=== PATIENT | female | born 1985 | race Caucasian/White ===

== ENCOUNTER 2017-08-01 15:48 | Emergency (ER) | payer MEDICAID ==
[2017-08-01 16:02] VITALS: RESP 16; TEMP 98.8
--- NOTE | 2017-08-01 16:28 | EDPHY ---
HPI/HX/ROS/PE/MDM Narrative: CHIEF COMPLAINT: Lower right quadrant abdominal pain HPI: The patient is a 32 y/o female complaining of lower right abdominal pain onset last night. She is about 12 weeks with her third . A recent ultrasound showed a single fetus with no complications. She was woken up last night by a sharp pain in her abdomen. She reports that the pain does not move and has no relieving factors. She denies vaginal bleeding, abnormal vaginal discharge, dysuria, fever, vomiting, diarrhea, or other associated symptoms. She reports normal oral intake with her last meal at 1:00 PM, 3 hours ago. She had a gallbladder removal surgery but still has her appendix. REVIEW OF SYSTEMS: Aside from elements discussed in the HPI, a comprehensive 10-point review of systems was reviewed and is negative. PMH: IBS, in her third SOCIAL HISTORY: Daughter at bedside, live in [place], PCP: Dr. Sung Nolen PHYSICAL EXAM: General:Patient is alert, in pain. ENT:Eyes are normal to inspection. ENT inspection normal. Neck: Normal inspection. Full range of motion. Respiratory:No respiratory distress. Breath sounds normal bilaterally. Cardiovascular: Regular rate and rhythm. Normal cap refill. Abdomen: Gravid uterus. Severe lower right quadrant pain worse to palpation. There are no peritoneal signs. There are normal bowel sounds. Back: Normal to inspection. No tenderness to palpation. Skin: Normal color. No rash. Warm and dry. Extremities: Normal appearance. Full range of motion. Neuro: Oriented x3. Normal motor function. Normal sensory function. ED Course: Study: Ultrasound of the abdomen Indication: Lower right quadrant pain Results: Ultrasound of the abdomen was obtained. The results of the study are: normal The study was read by the radiologist, Dr. William. I viewed the images myself on the PACS system. Study: Ultrasound of the uterus Indication: Abdominal pain in Results: Ultrasound of the uterus was obtained. The results of the study are: negative for acute processes The study was read by the radiologist, Dr. William. I viewed the images myself on the PACS system. I reassessed patient and discussed the results of her work-up with her. Her workup has been largely negative. I explained that she could have a kidney stone and an MRI would be necessary to completely rule out appendicitis. She refuses further testing and would like to leave. MDM: This is a first trimester patient with acute onset of RLQ pain. Her workup is obviously limited somewhat by her . US is negative for abnormal visualized appendix and there is an appropriate age IUP with no pelvic abnormality seen, so I think ectopic is very unlikely. Her WBC is negative, making appendicitis less likely. UA is positive for blood, so this may represent kidney stone. I explained to patient in detail that an MRI of her abdomen is indicated to definitively rule out any serious pathology, but she declines this test. She would prefer to try conservative management at home and return to ED if worsening. She understands that we are unable to rule out potentially life- or baby-threatening pathology without further testing. I see no signs of UTI. - Data Points Imaging Results: Imaging Impressions Abdomen Ultrasound 08/01/17 16:23 Impression: Nonvisualization of the appendix with no secondary evidence of appendicitis. Findings discussed with Singh Lea MD 08/01/2017 at 17:34. Obstetrics Ultrasound 08/01/17 16:23 Impression: 1. Single living intrauterine gestation with size consistent with dates. 2. Subjectively low amniotic fluid volume likely within normal limits. Attention is recommended on follow-up. Imaging: Discussed imaging studies w/ director call center sales Radiologist, I viewed and interpreted images myself Laboratory Results: Laboratory Results 08/01/17 16:39 08/01/17 16:39 08/01/17 08/01/17 08/01/17 18:00 16:39 16:39 WBC 7.85 10^3/uL 10^3/uL (3.80-9.50) RBC 4.03 10^6/uL L 10^6/uL (4.18-5.33) Hgb 13.1 g/dL g/dL (12.6-16.3) Hct 36.7 % L % (38.0-47.0) MCV 91.1 fL fL (81.5-99.8) MCH 32.5 pg pg (27.9-34.1) MCHC 35.7 g/dL g/dL (32.4-36.7) RDW 11.8 % % (11.5-15.2) Plt Count 256 10^3/uL 10^3/uL (150-400) MPV 10.1 fL fL (8.7-11.7) Neut % (Auto) 70.3 % % (39.3-74.2) Lymph % (Auto) 22.3 % % (15.0-45.0) [place] % (Auto) 6.9 % % (4.5-13.0) Eos % (Auto) 0.1 % L % (0.6-7.6) Baso % (Auto) 0.1 % L % (0.3-1.7) Nucleat RBC Rel Count 0.0 % % (0.0-0.2) Absolute Neuts (auto) 5.52 10^3/uL 10^3/uL (1.70-6.50) Absolute Lymphs (auto) 1.75 10^3/uL 10^3/uL (1.00-3.00) Absolute Monos (auto) 0.54 10^3/uL 10^3/uL (0.30-0.80) Absolute Eos (auto) 0.01 10^3/uL L 10^3/uL (0.03-0.40) Absolute Basos (auto) 0.01 10^3/uL L 10^3/uL (0.02-0.10) Absolute Nucleated RBC 0.00 10^3/uL 10^3/uL (0-0.01) Immature Gran % 0.3 % % (0.0-1.1) Immature Gran # 0.02 10^3/uL 10^3/uL (0.00-0.10) Sodium 135 mEq/L mEq/L (134-144) Potassium 3.9 mEq/L mEq/L (3.5-5.2) Chloride 104 mEq/L mEq/L (97-110) Carbon Dioxide 25 mEq/l mEq/l (22-31) Anion Gap 6 mEq/L L mEq/L (8-16) BUN 5 mg/dL L mg/dL (7-23) Creatinine 0.6 mg/dL mg/dL (0.6-1.0) Estimated GFR > 60 Glucose 72 mg/dL mg/dL (70-100) Calcium 9.0 mg/dL mg/dL (8.5-10.4) Urine Color LT. YELLOW Urine Appearance HAZY Urine pH 6.5 (5.0-7.5) Ur Specific [place] 1.025 (1.002-1.030) Urine Protein NEGATIVE (NEGATIVE) Urine Ketones NEGATIVE (NEGATIVE) Urine Blood 2+ H (NEGATIVE) Urine Nitrate NEGATIVE (NEGATIVE) Urine Bilirubin NEGATIVE (NEGATIVE) Urine Urobilinogen 0.2 EU EU (0.2-1.0) Ur Leukocyte Esterase NEGATIVE (NEGATIVE) Urine RBC 25-50 /hpf H /hpf (0-3) Urine WBC 5-10 /hpf H /hpf (0-3) Ur Epithelial Cells 4+ /lpf H /lpf (NONE-1+) Urine Mucus 4+ /lpf H /lpf (NONE-1+) Urine Glucose NEGATIVE (NEGATIVE) General Time Seen by Provider: 08/01/17 16:19 Initial Vital Signs: Initial Vital Signs Temperature (C) 37.1 C 08/01/17 15:57 Heart Rate 78 08/01/17 15:57 Respiratory Rate 16 08/01/17 15:57 Blood Pressure 100/61 08/01/17 15:57 O2 Sat (%) 98 08/01/17 15:57 O2 Delivery Mode Room Air Allergies/Adverse Reactions: No Known Allergies Allergy (Unverified 08/01/17 16:02) Home Medications: Medication Instructions Recorded NK [No Known Home Meds] 08/01/17 Departure - Departure Disposition: Home, Routine, Self-Care Clinical Impression: Abdominal pain during Qualifiers: Trimester: second trimester Qualified Code(s): O26.892 - Other specified related conditions, second trimester Condition: Good Instructions: Abdominal Pain in (ED) Additional Instructions: 1. Follow-up with your primary care provider for unimproved symptoms in 2-3 days. 2. Return to the ED for worsening of symptoms. Referrals: Sung Nolen MD [Primary Care Provider] - As per Instructions Report Scribed for: Singh Lea Report Scribed by: Rebecca Sunshine Date of Report: 08/01/17 Time of Report: 16:30 Physician Review and Approval Statement: Portions of this note were transcribed by an ED scribe. I personally performed the history, physical exam, and medical decision making; and confirm the accuracy of the information in the transcribed note.
[2017-08-01 16:53] LABS: PLATELET COUNT 256 10^3/uL (150-400)
[2017-08-01 18:48] VITALS: BP 107/66; PULSE 87; O2SAT 97
== END 2017-08-01 18:47 | disposition home or self-care (01) ==
DX: O26.891 Other specified pregnancy related conditions, first trimester (principal); R10.31 Right lower quadrant pain; Z3A.12 12 weeks gestation of pregnancy

== ENCOUNTER 2017-08-15 11:19 | Emergency (ER) | payer MEDICAID ==
[2017-08-15 11:25] VITALS: BP 95/46; PULSE 94; RESP 16; TEMP 97.9; O2SAT 97
--- NOTE | 2017-08-15 11:39 | EDPHY ---
General Narrative: CHIEF COMPLAINT: Finger injury HISTORY OF PRESENT ILLNESS: Patient complains of left middle finger pain. Approximately 30-45 minutes ago she accidentally smashed her left finger in a drawer. Immediate onset of pain in the distal phalanx and over the PIP on the left middle finger. No injury elsewhere. Some tingling of the finger tip. An abrasion to the finger. No laceration. Some bruising. Pain is constant, 10/10. Worse with palpation and movement. No injury or pain elsewhere. Current 15 weeks . No other associated complaints or modifying factors. Right-hand dominant. ESTABLISHED ORTHOPEDIST: None REVIEW OF SYSTEMS: Ten systems reviewed and are negative unless otherwise noted in the HPI FAMILY HISTORY: Noncontributory EXAMINATION General Appearance: Alert, no distress Cardiovascular: Pulses normal throughout. Symmetric radial pulses 2+. Brisk cap refill Neurological: A&O, sensory symmetric, interossei strength symmetric. Normal light sensation of the hand Skin: Warm and dry, no rash. Abrasion over the left middle finger distal phalanx, volar. No puncture bleeding. Extremities: Tenderness of the left middle finger distal phalanx and PIP. Range of motion limited due to pain but there is flexion extension retained. Slight ulnar deviation of the distal phalanx on the left middle finger. Neurovascular intact. DIFFERENTIAL DIAGNOSES: Including but not limited to fracture, dislocation, fracture dislocation, strain , sprain, crush injury MDM: 11:35 a.m. Crush injury to left middle finger with pain over the distal phalanx and PIP. Suspect possible dislocation at the IP. No puncture laceration. There is an abrasion. No bleeding. She is neuro intact. I have administered a digital block. The x-ray has been ordered. No acute distress. No injuries elsewhere. 11:50 a.m. X-ray as read by me reveals a possible, very small avulsion fracture at the base of the distal phalanx of left middle finger. This is a closed fracture. No dislocation. She was neuro intact prior to the administer aeration of the digital block. She will be placed in a finger splint. Information for the on- call hand surgeon has been provided. She is to contact hand surgeon her primary care physician. ED precautions discussed. Given her , recommend Tylenol, ice and elevation. No NSAIDs. She is comfortable this plan. 12:12 p.m. Interpretation by radiologist is no acute fracture. There is uncertain chronicity of malalignment that the DIP but no dislocation. Continue with splint placement follow up with hand surgeon for definitive care. PROCEDURE: Digital Block Indication: Crush injury to finger Consent: Verbal Location: Left middle finger Anesthesia: Lidocaine 1% plain, 0.25% Marcaine plain, 5mL Description: Base of the finger was prepped. The above was infused without difficulty. Tolerated well. Good anesthesia. Complications: None ED Precautions: Worsening pain. Erythema, edema, cyanosis, pallor, paresthesia or anesthesia. - Diagnostics Imaging Results: Imaging Impressions Finger X-Ray 08/15/17 11:34 Impression: Indeterminant chronicity of slight malalignment of the third DIP joint. No fracture. - History Smoking Status: Current every day smoker - Objective Vital Signs: Initial Vital Signs Temperature (C) 97.9 F 08/15/17 11:19 Heart Rate 94 08/15/17 11:19 Respiratory Rate 16 08/15/17 11:19 Blood Pressure 95/46 L 08/15/17 11:19 O2 Sat (%) 97 08/15/17 11:19 O2 Delivery Mode Room Air Allergies/Adverse Reactions: No Known Allergies Allergy (Verified 08/15/17 11:19) Home Medications: Medication Instructions Recorded NK [No Known Home Meds] 08/01/17 Departure - Departure Disposition: Home, Routine, Self-Care Clinical Impression: Crushed finger Qualifiers: Encounter type: initial encounter Qualified Code(s): S67.10XA - Crushing injury of unspecified finger(s), initial encounter Closed fracture of distal phalanx of left middle finger Qualifiers: Encounter type: initial encounter Fracture alignment: nondisplaced Qualified Code(s): S62.663A - Nondisplaced fracture of distal phalanx of left middle finger, initial encounter for closed fracture Condition: Good Instructions: Finger Fracture (ED) Additional Instructions: 1. Finger splint until seen by hand surgeon for definitive care 2. Contact her primary care physician in the on-call hand surgeon on Thursday morning for follow-up next week 3. Recommend Tylenol. I do not recommend any ibuprofen or Aleve due to the 4. Ice and elevate often 5. ED precautions as discussed Referrals: Murray Mcleod MD [Medical Doctor] - As per Instructions Sung Nolen MD [Medical Doctor] - As per Instructions
== END 2017-08-15 12:10 | disposition home or self-care (01) ==
PROC: 3E0T3BZ Introduction of Anesthetic Agent into Peripheral Nerves and Plexi, Percutaneous Approach (ICD-10-PCS; principal; 2017-08-15)
DX: S62.663A Nondisplaced fracture of distal phalanx of left middle finger, initial encounter for closed fracture (principal); F17.200 Nicotine dependence, unspecified, uncomplicated; W23.0XXA Caught, crushed, jammed, or pinched between moving objects, initial encounter
CPT/HCPCS: L3925

== ENCOUNTER 2018-01-11 19:21 | Observation (INO) | payer MEDICAID ==
--- NOTE | 2018-01-11 20:53 | SOAPPROG ---
SOAP Progress Note Assessment/Plan: Assessment: Lisa came in to triage this evening with complaints of constant LBP and pelvic pressure, new diarrhea for the past many days. Not really having discrete, repetitive ctx's. Recieved IV, 2 liters of fluid. FFN negative, SCE fingertip long. FHR flat then more reactive after short period of time, reassuring ultimately. Sees [facility] clinic - will f/u tomorrow. Ant Kruger MD ICD10 Worksheet Patient Problems: Problems Problem Status Onset Threatened labor Acute - ICD10 Problem Qualifiers (1) Threatened labor Qualifiers: Trimester: third trimester Qualified Code(s): O47.03 - False labor before 37 completed weeks of gestation, third trimester
[2018-01-11] MEDS ORDERED: LACTATED RINGERS IV ONE (21:00)
[2018-01-11] MEDS ORDERED: TERBUTALINE SULFATE 1 MG/ML VIAL SC PRN (21:21)
== END 2018-01-11 23:09 | disposition home or self-care (01) ==
LOC: FLD 19:21
PROVIDERS: ADMIT Obstetrics & Gynecology; ATTEND Obstetrics & Gynecology
DX: O47.03 False labor before 37 completed weeks of gestation, third trimester (principal); Z3A.35 35 weeks gestation of pregnancy
CPT/HCPCS: G0378

== ENCOUNTER 2018-08-25 17:14 | Emergency (ER) | payer MEDICAID ==
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
[2018-08-25] MEDS ORDERED: CEPHALEXIN 500 MG CAP PO ONE (17:43)
[2018-08-25] MEDS ORDERED: IBUPROFEN 600 MG TAB PO ONE (17:43)
[2018-08-25 19:30] VITALS: BP 125/78
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
== END 2018-08-25 19:30 | disposition home or self-care (01) ==
DX: N61.0 Mastitis without abscess (principal); S83.412A Sprain of medial collateral ligament of left knee, initial encounter; W18.40XA Slipping, tripping and stumbling without falling, unspecified, initial encounter

== ENCOUNTER 2018-09-08 19:59 | Emergency (ER) | payer MEDICAID ==
--- NOTE | 2018-09-08 20:09 | EDPHY ---
H & P Stated Complaint: upper abd pain x today, worse w/deep breath "chronic diarrhea " Time Seen by Provider: 09/08/18 20:07 HPI/ROS: CHIEF COMPLAINT: Lower chest and upper abdominal pain HISTORY OF PRESENT ILLNESS: The patient presents to the ED of intermittent lower chest and upper abdominal pain for past 7 months. It has been increasing in frequency. The patient describes a sharp pleuritic pain involving her left and right upper quadrant and lower chest. The patient denies any lower extremity swelling or edema. Patient was seen in the emergency department several weeks ago with right knee pain. She had negative x-rays that point time. REVIEW OF SYSTEMS: A comprehensive 10 point review of systems is otherwise negative aside from elements mentioned in the history of present illness. Source: Patient - Personal History Current Tetanus/Diphtheria Vaccine: Yes Current Tetanus Diphtheria and Acellular Pertussis (TDAP): Yes Tetanus Vaccine Date: 2016 - Medical/Surgical History Hx Asthma: No Hx Chronic Respiratory Disease: No Hx Diabetes: No Hx Cardiac Disease: No Hx Renal Disease: No Hx Cirrhosis: No Hx Alcoholism: No Hx HIV/AIDS: No Hx Splenectomy or Spleen Trauma: No Other PMH: /choly, HSV, LEAP and coloposcopies, anemia - Social History Smoking Status: Heavy smoker - Physical Exam Exam: General Appearance: Alert, no distress Eyes: Pupils equal and round no pallor or injection ENT, Mouth: Mucous membranes moist Respiratory: There are no retractions, lungs are clear to auscultation Cardiovascular: Regular rate and rhythm Gastrointestinal: Tenderness to palpation in the epigastrium, left upper quadrant and right upper quadrant Neurological: 5/5 strength all 4 extremities Skin: Warm and dry, no rashes Musculoskeletal: Neck is supple nontender Extremities: symmetrical, full range of motion Psychiatric: Patient is oriented X 3, there is no agitation Constitutional: Initial Vital Signs Temperature (C) 36.7 C 09/08/18 20:03 Heart Rate 103 H 09/08/18 20:03 Respiratory Rate 20 09/08/18 20:03 Blood Pressure 113/87 H 09/08/18 20:03 O2 Sat (%) 96 09/08/18 20:03 O2 Delivery Mode Room Air Allergies/Adverse Reactions: No Known Allergies Allergy (Verified 09/08/18 20:01) Home Medications: Medication Instructions Recorded Buspar (*) 01/11/18 Zyrtec 01/11/18 Abilify 09/08/18 Medical Decision Making - Diagnostics EKG Interpretation: EKG: Complete interpretation has been separately recorded in the [facility] archive. Summary impression: Sinus tachycardia, rate 105 Imaging Results: Imaging Impressions Chest X-Ray 09/08/18 21:09 Impression: No evidence of acute cardiopulmonary abnormality. ED Course/Re-evaluation: The patient presents to the ED with months of intermittent lower chest and upper abdominal discomfort which is sharp in nature. The patient is 7 months . She denies any asymmetric calf pain or swelling. She did have some right knee pain several weeks ago. Patient is noted to be hemodynamically stable upon arrival aside from a slight tachycardia. She has minimal tenderness noted on exam. The patient's D-dimer is negative which I feel adequately excludes pulmonary embolism in this low risk by Wells criteria patient The patient's chest x-ray demonstrates no evidence of acute disease. The patient's liver function test and lipase are within normal limits. This point time I see no obvious explanation for the patient's pain aside from a diagnosis of exclusion of costochondritis. The patient will be advised to use ibuprofen for management of her symptoms. The patient should continue to follow up with her primary care provider as needed. Differential Diagnosis: Differential diagnosis considered includes costochondritis, myofascial strain, pulmonary embolism, pancreatitis, choledocholithiasis - Data Points Laboratory Results: Laboratory Results 09/08/18 20:25 09/08/18 20:25 09/08/18 09/08/18 09/08/18 20:25 20:25 20:25 WBC RBC Hgb Hct MCV MCH MCHC RDW Plt Count MPV Neut % (Auto) Lymph % (Auto) [place] % (Auto) Eos % (Auto) Baso % (Auto) Nucleat RBC Rel Count Absolute Neuts (auto) Absolute Lymphs (auto) Absolute Monos (auto) Absolute Eos (auto) Absolute Basos (auto) Absolute Nucleated RBC Immature Gran % Immature Gran # D-Dimer 0.31 ug/mLFEU ug/mLFEU (0.00-0.50) Sodium 139 mEq/L mEq/L (135-145) Potassium 4.5 mEq/L mEq/L (3.5-5.2) Chloride 103 mEq/L mEq/L (97-110) Carbon Dioxide 24 mEq/l mEq/l (22-31) Anion Gap 12 mEq/L mEq/L (6-14) BUN 17 mg/dL mg/dL (7-23) Creatinine 0.8 mg/dL mg/dL (0.6-1.0) Estimated GFR > 60 Glucose 93 mg/dL mg/dL (70-100) Calcium 9.4 mg/dL mg/dL (8.5-10.4) Total Bilirubin 0.4 mg/dL mg/dL (0.1-1.4) Conjugated Bilirubin 0.2 mg/dL mg/dL (0.0-0.5) Unconjugated Bilirubin 0.2 mg/dL mg/dL (0.0-1.1) AST 28 IU/L IU/L (14-46) ALT 33 IU/L IU/L (9-52) Alkaline Phosphatase 131 IU/L H IU/L (38-126) Total Protein 7.8 g/dL g/dL (6.3-8.2) Albumin 4.5 g/dL g/dL (3.5-5.0) Lipase 69 IU/L IU/L (23-300) Beta HCG, Qual NEGATIVE 09/08/18 20:25 WBC 9.21 10^3/uL 10^3/uL (3.80-9.50) RBC 4.32 10^6/uL 10^6/uL (4.18-5.33) Hgb 13.5 g/dL g/dL (12.6-16.3) Hct 40.2 % % (38.0-47.0) MCV 93.1 fL fL (81.5-99.8) MCH 31.3 pg pg (27.9-34.1) MCHC 33.6 g/dL g/dL (32.4-36.7) RDW 12.0 % % (11.5-15.2) Plt Count 391 10^3/uL 10^3/uL (150-400) MPV 9.7 fL fL (8.7-11.7) Neut % (Auto) 70.0 % % (39.3-74.2) Lymph % (Auto) 19.9 % % (15.0-45.0) [place] % (Auto) 8.8 % % (4.5-13.0) Eos % (Auto) 0.4 % L % (0.6-7.6) Baso % (Auto) 0.5 % % (0.3-1.7) Nucleat RBC Rel Count 0.0 % % (0.0-0.2) Absolute Neuts (auto) 6.44 10^3/uL 10^3/uL (1.70-6.50) Absolute Lymphs (auto) 1.83 10^3/uL 10^3/uL (1.00-3.00) Absolute Monos (auto) 0.81 10^3/uL H 10^3/uL (0.30-0.80) Absolute Eos (auto) 0.04 10^3/uL 10^3/uL (0.03-0.40) Absolute Basos (auto) 0.05 10^3/uL 10^3/uL (0.02-0.10) Absolute Nucleated RBC 0.00 10^3/uL 10^3/uL (0-0.01) Immature Gran % 0.4 % % (0.0-1.1) Immature Gran # 0.04 10^3/uL 10^3/uL (0.00-0.10) D-Dimer Sodium Potassium Chloride Carbon Dioxide Anion Gap BUN Creatinine Estimated GFR Glucose Calcium Total Bilirubin Conjugated Bilirubin Unconjugated Bilirubin AST ALT Alkaline Phosphatase Total Protein Albumin Lipase Beta HCG, Qual Departure - Departure Disposition: Home, Routine, Self-Care Clinical Impression: Costochondritis, acute Condition: Good Instructions: Costochondritis (ED) Additional Instructions: 1. Take Ibuprofen or Motrin 600 mg by mouth three times a day. 2. The workup in the emergency department today is unrevealing. Referrals: Geri Jenkins [Primary Care Provider] - As per Instructions
[2018-09-08 20:36] LABS: PLATELET COUNT 391 10^3/uL (150-400)
--- NOTE | 2018-09-08 20:54 | CPEKG ---
Test Reason : OPEN Blood Pressure : / mmHG Vent. Rate : 105 BPM Atrial Rate : 106 BPM P-R Int : 059 ms QRS Dur : 078 ms QT Int : 391 ms P-R-T Axes : 042 059 -29 degrees QTc Int : 517 ms Sinus tachycardia Confirmed by Eriberto Lu ([id number] on 09/08/2018 8:53:49 PM Referred By: Confirmed By:Eribreto Lu
[2018-09-08 21:50] VITALS: BP 108/69
== END 2018-09-08 21:55 | disposition home or self-care (01) ==
DX: M94.0 Chondrocostal junction syndrome [Tietze] (principal); F17.200 Nicotine dependence, unspecified, uncomplicated